=== PATIENT | male | born 1995 | race Caucasian/White ===

== ENCOUNTER → 2021-07-19 | Outpatient (CLI) | payer BC ==
--- NOTE | 2021-07-19 16:13 | CONS ---
CONSULTATION DATE OF SERVICE: 07/19/2021 This 26-year-old gentleman has been evaluated in [facility] for significant excessive daytime sleepiness, snoring, episodes of snorting. 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 Consequently his sleep schedule is from 8 a.m. until 3 p.m. No problems with falling asleep; he goes to sleep very quickly. He wakes up from sleep about 4 times with one episode of nocturia. Positive history of loud snoring and awakenings with dry mouth, restless legs. After sleep, the patient wakes up tired, always feels sleepy, has difficulties paying attention, problems with memory, concentration, irritability. [place] Sleepiness Scale is significantly increased to 18. He may take up to two naps at any time. No clear history of hypnagogic hallucinations, but sometimes the patient sees dreams right while falling asleep, which may indicate hypnagogic hallucinations. No history of sleep paralysis. PAST MEDICAL HISTORY: Positive for diabetes mellitus. PAST SURGICAL HISTORY: Surgery for testicular distending in 2002. MEDICATIONS: Janumet 50/500 mg once a day, lisinopril 5 mg once a day. SOCIAL HISTORY: Negative for smoking. Alcohol consumption rarely. FAMILY HISTORY: Positive for hypertension, stroke, sleep apnea, headaches, cancer, diabetes, anemia, mental illness, restless legs. REVIEW OF SYSTEMS: Snoring, multiple awakenings from sleep, significant excessive daytime sleepiness. No fevers. No double vision. No recent chest pain. No shortness of breath. No abdominal pain. No bleeding episodes. No blood in the urine. No seizure episodes. PHYSICAL EXAMINATION: GENERAL: Pleasant gentleman without distress. VITAL SIGNS: BP 134/75, HR 86, height 5 feet 10 inches, weight 246.4, body mass index 35.2, temperature 97.1, oxygen saturation at room air 97%. HEENT: PERRLA, EOMI, evaluation of oropharynx showed tongue protrudes midline. Extremely low position of soft palate; Mallampati IV. NECK: Supple, no JVD. Thyroid is not palpable. Neck is wide; 18 inches in circumference. LUNGS: Clear to percussion and to auscultation. Good air exchange. No wheezing or rhonchi. HEART: S1, S2 regular. No murmurs, gallops, or rubs. ABDOMEN: Soft and nontender. Bowel sounds are present. No organomegaly appreciated. EXTREMITIES: No clubbing or cyanosis. TELEPHONE SEX WORKER: Awake, alert, and oriented X3. Cranial nerves 2 to 7 intact. There is no fasciculation or atrophy. noted. No focal deficits observed. IMPRESSION: 1. Loud snoring, witnessed episodes of snorting during sleep, extremely low position of soft palate, Mallampati IV, wide neck, 18 inches in circumference, sleepiness; obstructive sleep apnea-hypopnea syndrome. 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 No problems with falling asleep during the daytime. 3. Significant sleepiness with very high [place] Sleepiness Scale at 18 and positive history of hypnagogic hallucinations, indicating the possibility of narcolepsy. 4. Diabetes mellitus. 5. Status post testicle surgery in 2002. 6. Obesity; body mass index 35.2. PLAN: 1. Home sleep apnea test for evaluation of patient's breathing during sleep. 2. Treatment of obstructive sleep apnea with CPAP if test is positive. 3. If test is negative, we will proceed with polysomnogram with a following multiple sleep latency test for objective evaluation of patient's symptoms of significant excessive daytime sleepiness. 4. Extreme precautions related to driving. No driving if feeling sleepiness. 5. Watching weight. 6. Preferable position during sleep is on the side and up at the present time. Thank you very much for referring this patient for consultation. Sincerely, Gonzales Powers MD, PhD, FAASM Diplomat of [employer] Sleep Medicine Board of [employer] Department Store Door Greeter of [facility] [place] MMODL / ANJELICAN: [id number] /
== END ==
LOC: SLEEP 10:39
PROVIDERS: ATTEND Internal Medicine
DX: G47.33 Obstructive sleep apnea (adult) (pediatric) (principal); E11.9 Type 2 diabetes mellitus without complications; Z98.890 Other specified postprocedural states; E66.9 Obesity, unspecified; Z68.35 Body mass index [BMI] 35.0-35.9, adult; I10 Essential (primary) hypertension; Z86.73 Personal history of transient ischemic attack (TIA), and cerebral infarction without residual deficits
CPT/HCPCS: 99211

== ENCOUNTER → 2021-12-13 | Outpatient (CLI) | payer BC ==
--- NOTE | 2021-12-13 16:03 | P.PN ---
Subjective DATE: 12/13/2021 FOLLOW UP VISIT. Patient with obstructive sleep apnea hypopnea syndrome return to sleep center for follow-up visit. Recently patient had sleep study which documented obstructive sleep apnea hypopnea syndrome. Patient was initiated on PAP therapy and today is first visit after treatment was started. Patient was able to use PAP equipment every night for the whole night. The patient does not have significant problems with the mask, PAP pressure and humidification. [place] sleepiness scale is 12, which showed improvements comparing with the first visit when it was 18. I checked information from PAP unit. PAP unit pressure 5-15 average 8.8 cm H2O. Usage is 100% and 63 % for more then 4 hours, average average 4 hours 21 minutes hours per night. Leak is 11.5 l/m, which is in acceptable range. Apnea Hypopnea Index is 0.4, which is normal. MEDICATIONS:1. Lisinopril 5 mg once a day 2. Janumet During physical exam: GENERAL: A pleasant patient without any distress. VITAL SIGNS: BP 138/78, HR 92, RR 16 , weight 246.4, temperature 98.2, oxygen saturation at room air 98 . HEENT: PERRLA, EOMI.low position of soft palate, Mallapati 4 . NECK: Supple. No JVD. LUNGS: Clear to percussion and to auscultation. Good air exchange. No wheezing or rhonchi. HEART: S1, S2 regular. ABDOMEN: Soft and nontender.[] EXTREMITIES: No clubbing or cyanosis. BURLAP SPREADER: Awake, alert, and oriented x3. No focal deficit. Impressions: 1. Obstructive sleep apnea-hypopnea syndrome. Patient demonstrated borderline compliance with treatment, benefiting from treatment. 2. Obesity. 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 4. Diabetes mellitus. 5. Status post testicle surgery in 2002. Plan: 1. Continue using PAP equipment every night for the whole night, patient promised to follow recommendations. 2. To change air filter at least 1-2 times per month. 3. PAP unit should stay lower then position of the head. 4. Advised patient to remove all remaining water from humidifier canister daily and make it dry after each usage. Refill canister with fresh distilled water before each usage. 5. Sleep hygiene with regular time in bed for at least 8 hours. 6. Precautions related to driving. No driving if feel any sleepiness. 7. I will maintain prescription for PAP supplies including mask, tube, filters. 8. Follow up visit in 6 months or earlier if patient has any problems. 9. Watching weight. Thank you very much for allowing me to participate in the management of your pat ient. Gonzales Powers MD, PhD, FAASM. Diplomat of [place] [employer], Sleep Medicine Board by [employer] Ad Copy Writer of [facility] [place]
== END | disposition home or self-care (01) ==
LOC: SLEEP 14:45
PROVIDERS: ATTEND Internal Medicine
DX: G47.33 Obstructive sleep apnea (adult) (pediatric) (principal); E66.9 Obesity, unspecified; E11.9 Type 2 diabetes mellitus without complications; Z79.84 Long term (current) use of oral hypoglycemic drugs; Z90.79 Acquired absence of other genital organ(s)

== ENCOUNTER → 2022-06-27 | Outpatient (CLI) | payer BC ==
--- NOTE | 2022-06-27 14:20 | P.PN ---
Subjective DATE: 06/27/2022 FOLLOW UP VISIT. Patient with obstructive sleep apnea hypopnea syndrome return to sleep center for follow-up visit. Information from previous visit have been reviewed. Patient is using PAP equipment every night for the whole night, getting PAP supplies in time. The patient does not have significant problems with the mask, PAP unit and humidification. [place] sleepiness scale is 14, which indicates sleepiness. I checked information from PAP unit. PAP unit pressure 5-15, average 8.1 cm H2O. Usage is 87% , average 3.5 hours per night. Leak is 10.7 l/m, which is in acceptable range. Apnea Hypopnea Index is 1.0, which is normal. MEDICATIONS:1. Janumet 2. Lisinopril 3. Januvia During physical exam: GENERAL: A pleasant patient without any distress. VITAL SIGNS: BP 126/81, HR 90, RR 20, weight 238.6, temperature 98.3, oxygen saturation at room air 97 % . HEENT: PERRLA, EOMI.low position of soft palate, Mallapati 4 . NECK: Supple. No JVD. LUNGS: Clear to percussion and to auscultation. Good air exchange. No wheezing or rhonchi. HEART: S1, S2 regular. ABDOMEN: Soft and nontender.[] EXTREMITIES: No clubbing or cyanosis. AIRCRAFT ENGINE MECHANIC OVERHAUL: Awake, alert, and oriented x3. No focal deficit. Impressions: 1. Obstructive sleep apnea-hypopnea syndrome. Patient demonstrated borderline compliance with treatment, normal respiration on CPAP. 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 3. Diabetes mellitus. 4. Status post testicle surgery in 2002. Plan: 1. Continue using PAP equipment every night for the whole night. 2. To change air filter at least 1-2 times per month. 3. PAP unit should stay lower then position of the head. 4. Advised patient to remove all remaining water from humidifier canister daily and make it dry after each usage. Refill canister with fresh distilled water before each usage. 5. Sleep hygiene with regular time in bed for at least 8 hours. 6. Precautions related to driving. No driving if feel any sleepiness. 7. I will maintain prescription for PAP supplies including mask, tube, filters. 8. Watching weight. 9. Follow up visit in 6 months or earlier if patient has any problems. Thank you very much for allowing me to participate in the management of your patient. Gonzales Powers MD, PhD, FAASM. Diplomat of [place] [employer], Sleep Medicine Board by [place] [employer] Photograph Mounter of [facility] [place]
== END ==
LOC: SLEEP 13:39
PROVIDERS: ATTEND Internal Medicine
DX: G47.33 Obstructive sleep apnea (adult) (pediatric) (principal); E11.9 Type 2 diabetes mellitus without complications; Z98.890 Other specified postprocedural states; Z99.89 Dependence on other enabling machines and devices
CPT/HCPCS: 99212

== ENCOUNTER → 2023-01-02 | Outpatient (CLI) | payer BC ==
--- NOTE | 2023-01-02 14:08 | P.PN ---
Subjective DATE: 09/02/2022 FOLLOW UP VISIT. Patient with obstructive sleep apnea hypopnea syndrome return to sleep center for follow-up visit. Information from previous visit have been reviewed. Patient did not use his CPAP equipment for the last period of time, mostly because she forgot to put electrical power to his CPAP unit. The patient does not have significant problems with the mask, PAP unit and humidification. [place] sleepiness scale is increased to 13. I checked information from PAP unit. PAP unit pressure 5-15, average 8.6 cm H2O. Usage is 239 nights last year average 3.8hours per night. Leak is 19 l/m, which is in acceptable range. Apnea Hypopnea Index is 0.8, which is normal. MEDICATIONS:1. Janumet twice a day 2. Januvia once a day 3. Lisinopril once a day During physical exam: GENERAL: A pleasant patient without any distress. VITAL SIGNS: BP 122/78, HR 93, RR 16 , weight 231.4, temperature 97.9, oxygen saturation at room air 93 % . HEENT: PERRLA, EOMI.low position of soft palate, Mallapati 4 . NECK: Supple. No JVD. LUNGS: Clear to percussion and to auscultation. Good air exchange. No wheezing or rhonchi. HEART: S1, S2 regular. ABDOMEN: Soft and nontender.[] EXTREMITIES: No clubbing or cyanosis. TURNING LATHE TENDER: Awake, alert, and oriented x3. No focal deficit. Impressions: 1. Obstructive sleep apnea-hypopnea syndrome. Patient demonstrated borderline compliance with treatment, benefiting from treatment. 2. Diabetes mellitus, patient referred improving levels of blood sugar, but hemoglobin A1c more than 6 according to patient. 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 4. Status post the testicle surgery in 2002. Patient promised to follow recommendations Plan: 1. Continue using PAP equipment every night for the whole night, . 2. To change air filter at least 1-2 times per month. 3. PAP unit should stay lower then position of the head. 4. Advised patient to remove all remaining water from humidifier canister daily and make it dry after each usage. Refill canister with fresh distilled water before each usage. 5. Sleep hygiene with regular time in bed for at least 8 hours. 6. Precautions related to driving. No driving if feel any sleepiness. 7. I will maintain prescription for PAP supplies including mask, tube, filters. 8. Follow up visit in 4 months or earlier if patient has any problems. 9. Watching weight. Thank you very much for allowing me to participate in the management of your patient. Gonzales Powers MD, PhD, FAASM. Diplomat of [place] [employer], Sleep Medicine Board by [employer] [employer] [place] Shed Worker of [facility] [place]
== END ==
LOC: 3 N SLEEP 13:40
PROVIDERS: ATTEND Internal Medicine
DX: G47.33 Obstructive sleep apnea (adult) (pediatric) (principal); E11.9 Type 2 diabetes mellitus without complications; Z79.84 Long term (current) use of oral hypoglycemic drugs; Z99.89 Dependence on other enabling machines and devices; Z98.890 Other specified postprocedural states
CPT/HCPCS: 99212